=== PATIENT | male | born 1955 | race African-American/Black ===

== ENCOUNTER 2021-02-23 06:18 | Observation (INO) | payer OTHER, MEDICARE ==
[2021-02-22 09:34] LABS: BASOPHILS # (AUTO) 0.1 (0.0-0.1); BASOPHILS % 1.1 % (0.0-1.0); EOSINOPHILS # (AUTO) 0.2 (0.0-0.4); EOSINOPHILS % 2.6 % (0.0-6.0); HEMATOCRIT 41.1 % (38.2-49.6); HEMOGLOBIN 13.3 g/dL (14.0-18.0); LYMPHOCYTES # (AUTO) 2.1 (1.0-3.2); LYMPHOCYTES % 25.5 % (18.0-39.1); MEAN CORPUSCULAR HEMOGLOBIN 28.2 pg (28-32); MEAN CORPUSCULAR HGB CONC 32.4 g/dL (31-35); MEAN CORPUSCULAR VOLUME 87.3 fL (81-99); MONOCYTES # (AUTO) 0.7 (0.2-0.8); MONOCYTES % 7.9 % (4.4-11.3); NEUTROPHILS # (AUTO) 5.1 (2.1-6.9); NEUTROPHILS % 62.7 % (38.7-80.0); PLATELET COUNT 348 x10e3/uL (140-360); RED BLOOD COUNT 4.71 x10e6/uL (4.3-5.7); RED CELL DISTRIBUTION WIDTH 13.7 % (11.7-14.4)
[2021-02-22 09:57] LABS: ANION GAP 16.6 mmol/L (8-16); CALCIUM 9.6 mg/dL (8.4-10.2); CREATININE, SERUM 1.37 mg/dL (0.72-1.25); POTASSIUM 4.6 mmol/L (3.5-5.1)
[2021-02-23] MEDS ORDERED: TRANEXAMIC ACID 1,000 MG/10 ML ML ONE (06:38)
[2021-02-23] MEDS ORDERED: Vancomycin IV 1,000 MG ONE (06:38)
[2021-02-23] MEDS ORDERED: SODIUM CHLORIDE 0.9% 500ML 500 ML ONE (06:38)
[2021-02-23] MEDS ORDERED: CELECOXIB 200 MG CAP ONE (07:08)
[2021-02-23] MEDS ORDERED: DEXAMETHASONE SOD PHOS 10 MG/1 ML VIAL ONE (07:09)
[2021-02-23] MEDS ORDERED: GABAPENTIN 300 MG CAP ONE (07:09)
[2021-02-23] MEDS ORDERED: SODIUM CHLORIDE 0.9% 50ML 100 ML ONE (07:10)
[2021-02-23] MEDS ORDERED: LOSARTAN POTAS100 MG PO (07:21)
[2021-02-23] MEDS ORDERED: AMLODIPINE BESYL5 MG PO (07:22)
[2021-02-23] MEDS ORDERED: FINASTERIDE5 MG PO (07:22)
[2021-02-23] MEDS ORDERED: FUROSEMIDE10 MG/1 M1 IV (07:23)
[2021-02-23] MEDS ORDERED: OXYCODONE HCL5 M1 (07:24)
[2021-02-23] MEDS ORDERED: TYLENOL325 MG PO (07:24)
[2021-02-23] MEDS ORDERED: ROPIVACAINE 246.25 MG, EPINEPHRINE HCL 1:1000 1ML 0.5 MG, CLONIDINE HCL 0.08 MG, KETORO... INJ ONE ×5 (07:30)
[2021-02-23] MEDS ORDERED: KETOROLAC TROMETHAMINE 30 MG/ML VIAL IV PRN ×2 (09:30→12:30)
[2021-02-23] MEDS ORDERED: HYDROCODONE/APAP 7.5MG-325MG 1 EA TAB PO PRN (09:30)
[2021-02-23] MEDS ORDERED: SODIUM CHLORIDE 0.9% 1000ML 1,000 ML IV SCH (09:30)
[2021-02-23] MEDS ORDERED: DIPHENHYDRAMINE HCL INJ 50 MG/ML VIAL IV PRN (09:30)
[2021-02-23] MEDS ORDERED: ONDANSETRON HCL INJ 2MG/ML 2ML 2 MG/ML VIAL IV PRN (09:30)
[2021-02-23] MEDS ORDERED: ACETAMINOPHEN 650 MG SUPP PR PRN (09:30)
[2021-02-23] MEDS ORDERED: ZOLPIDEM TARTRATE 5 MG TAB PO PRN (09:30)
[2021-02-23] MEDS ORDERED: DOCUSATE SODIUM 100 MG CAP PO PRN (09:30)
[2021-02-23] MEDS ORDERED: FENTANYL CITRATE/PF 100MCG/2 ML INJ ONE (09:54)
[2021-02-23] MEDS ORDERED: HYDROMORPHONE 1MG/1ML INJ ONE (10:20)
[2021-02-23 11:36] VITALS: BP 154/78
[2021-02-23 11:48] VITALS: BP 154/78
[2021-02-23] MEDS: HYDROCODONE/APAP 5MG-325MG TAB PO PRN ×2 (12:20→16:03)
[2021-02-23 12:58] VITALS: BP 139/88
[2021-02-23] MEDS ORDERED: OXYCODONE HCL IR 5 MG TAB PO PRN (13:00)
[2021-02-23 13:18] VITALS: BP 147/88
[2021-02-23] MEDS ORDERED: Cefazolin 1 GM in SODIUM CHLORIDE 0.9% 50ML 50 ML IV SCH (14:00)
[2021-02-23 16:28] VITALS: BP 137/98
[2021-02-23] MEDS ORDERED: CELECOXIB 100 MG CAP PO SCH (17:00)
[2021-02-23] MEDS ORDERED: ASPIRIN 325 MG TAB PO SCH (17:00)
[2021-02-24] MEDS ORDERED: ACETAMINOPHEN 1000 MG/100 ML IV PRN (09:30)
== END 2021-02-23 17:38 | disposition home or self-care (01) ==
LOC: OR 06:18 → PACU V 10:20 → MED/SURG 11:12
PROVIDERS: ADMIT Specialist; ATTEND Specialist
DX: M17.11 Unilateral primary osteoarthritis, right knee (principal); I10 Essential (primary) hypertension; Z96.652 Presence of left artificial knee joint; Z87.440 Personal history of urinary (tract) infections; Z87.898 Personal history of other specified conditions
CPT/HCPCS: 27447; 36415; 71046; 73560; 80048; 85025; 86850; 86900; 86920; 93005; 97110; 97116 ×2; 97162; C1713 ×2; C1776 ×3; G0378; J0171; J0690; J1100; J1170; J1885; J2795; J3010; J3370; J7030; J7040; U0002